=== PATIENT | male | born 1985 | race Caucasian/White ===

== ENCOUNTER 2018-02-15 09:30 | Emergency (ER) | payer OTHER, SELFPAY ==
[2018-02-15 09:31] VITALS: BP 130/84; PULSE 78; RESP 18; TEMP 36.4; O2SAT 99; BMI 28.0
--- NOTE | 2018-02-15 10:07 | ED.VISSUMM ---
- ER Visit Summary Date of Service: 02/15/18 Chief Complaint: Patient hit the edge of his left second digit, sustaining a laceration. He has no bony tenderness he has full range of motion he has no sensory deficits. Physical Examination: There is a 3 cm laceration dorsum of the hand at the MP joint of the second digit. Tendon functions intact. Emergency Department Course and Treatment: 3 of the 4-0 nylon sutures were placed with good approximation. Tetanus was updated. Sutures to be removed in 10-14 days Discharge stable condition Impression: Laceration left hand 3 cm This note was generated with [employer] dictation software. It may contain incorrect words, spelling, and punctuation that were not noted in review of the chart prior to signing ED Disposition - Plan for ED Patient: Disposition: Home or Assisted Living Chief Complaint: Laceration Instructions: ED Laceration Hand Referrals: Emmanuel Ocampo MD [Primary Care Provider] - 10-14 Days suture removal
[2018-02-15] MEDS: Diphth,Pertuss(Acell),Tet Vac 0.5 ML Vial IM (10:17)
== END 2018-02-15 10:23 | disposition home or self-care (01) ==
PROVIDERS: Emergency Provider Emergency Medicine; Family Provider Family Medicine; PCP Family Medicine
DX: S61.211A Laceration without foreign body of left index finger without damage to nail, initial encounter (principal); Z23 Encounter for immunization; W26.9XXA Contact with unspecified sharp object(s), initial encounter; Y93.89 Activity, other specified; Y92.89 Other specified places as the place of occurrence of the external cause; Y99.8 Other external cause status
CPT/HCPCS: 12002; 90471; 90715; 99284

== ENCOUNTER 2019-11-03 12:19 | Outpatient (RCR) | payer OTHER, SELFPAY | END 2019-11-05 23:59 | LOC: EMPH 12:19 | PROVIDERS: Visit Provider Family Medicine Geriatric Medicine | DX: Z11.59 Encounter for screening for other viral diseases (principal) | CPT/HCPCS: 87635; U0003 ==

== ENCOUNTER 2020-02-04 14:42 | Outpatient (RCR) | payer OTHER, SELFPAY ==
[2019-11-17 10:53] VITALS: BMI 28.0
== END 2020-02-05 23:59 ==
LOC: EMPH 14:42
PROVIDERS: Visit Provider Family Medicine Geriatric Medicine
DX: Z03.818 Encounter for observation for suspected exposure to other biological agents ruled out (principal)
CPT/HCPCS: 87426

== ENCOUNTER 2020-12-07 10:13 | Outpatient (RCR) | payer MEDICARE, SELFPAY | END 2021-01-04 23:59 | LOC: LABSPEC 10:13 | PROVIDERS: Visit Provider Family Medicine Geriatric Medicine | DX: Z03.818 Encounter for observation for suspected exposure to other biological agents ruled out (principal) | CPT/HCPCS: 87426 ==

== ENCOUNTER 2021-02-03 15:50 | Outpatient (RCR) | payer MEDICARE, SELFPAY | END 2021-02-04 23:59 | LOC: EMPH 15:50 | PROVIDERS: Visit Provider Family Medicine Geriatric Medicine | DX: Z03.818 Encounter for observation for suspected exposure to other biological agents ruled out (principal) | CPT/HCPCS: 87635; U0003; U0005 ==